=== PATIENT | female | born 1990 ===

== ENCOUNTER 2018-04-10 10:13 | Outpatient (CLI) | payer OTHER ==
[~2018-04-10] VITALS: Ht 152.4 cm; Wt 65.8 kg
== END 2018-04-10 10:30 | disposition home or self-care (01) ==
LOC: OFIC 805 10:13
DX: H66.012 Acute suppurative otitis media with spontaneous rupture of ear drum, left ear (principal); H70.12 Chronic mastoiditis, left ear; H69.82 Other specified disorders of Eustachian tube, left ear; H61.22 Impacted cerumen, left ear

== ENCOUNTER 2018-10-23 14:22 | Inpatient (IN) | payer OTHER ==
[~2018-10-23] VITALS: Ht 167.6 cm; Wt 83.9 kg
== END 2018-11-07 11:42 | disposition home or self-care (01) | DRG 807 ==
LOC: OB/GYN 10-30 13:30 → LDR 11-04 15:03 → SURG-SUITE 11-04 15:03 → OB/GYN 11-19 13:30
PROVIDERS: ADMIT Obstetrics & Gynecology
PROC: 3E033VJ Introduction of Other Hormone into Peripheral Vein, Percutaneous Approach (ICD-10-PCS; 2018-11-04)
PROC: 10907ZC Drainage of Amniotic Fluid, Therapeutic from Products of Conception, Via Natural or Artificial Opening (ICD-10-PCS; 2018-11-04)
PROC: 4A1HXCZ Monitoring of Products of Conception, Cardiac Rate, External Approach (ICD-10-PCS; 2018-11-04)
PROC: 10E0XZZ Delivery of Products of Conception, External Approach (ICD-10-PCS; principal; 2018-11-05)
PROC: 0KQM0ZZ Repair Perineum Muscle, Open Approach (ICD-10-PCS; 2018-11-05)
PROC: 0W8NXZZ Division of Female Perineum, External Approach (ICD-10-PCS; 2018-11-05)
DX: O70.1 Second degree perineal laceration during delivery (principal); Z37.0 Single live birth; Z3A.37 37 weeks gestation of pregnancy; Z22.330 Carrier of Group B streptococcus

== ENCOUNTER 2018-11-03 13:15 | Outpatient (CLI) | payer OTHER | END 2018-11-03 13:37 | disposition home or self-care (01) | LOC: NST 13:15 | DX: Z34.83 Encounter for supervision of other normal pregnancy, third trimester (principal) ==

== ENCOUNTER 2018-11-03 16:16 | Outpatient (CLI) | payer OTHER | END 2018-11-03 17:35 | disposition home or self-care (01) | LOC: NST 16:16 | DX: Z34.83 Encounter for supervision of other normal pregnancy, third trimester (principal) ==

== ENCOUNTER 2019-01-08 11:40 | Outpatient (CLI) | payer OTHER ==
[~2019-01-08] VITALS: Ht 152.4 cm; Wt 71.7 kg
== END 2019-01-08 14:46 | disposition home or self-care (01) ==
LOC: OFIC 805 11:40
DX: H69.83 Other specified disorders of Eustachian tube, bilateral (principal); H70.12 Chronic mastoiditis, left ear; H61.23 Impacted cerumen, bilateral; H66.015 Acute suppurative otitis media with spontaneous rupture of ear drum, recurrent, left ear; H90.0 Conductive hearing loss, bilateral

== ENCOUNTER 2021-02-20 13:03 | Inpatient (IN) | payer OTHER ==
[~2021-02-20] VITALS: Ht 162.6 cm; Wt 75.3 kg
[2021-02-21] MEDS ORDERED: TRI-LO-SPRINTE1 EACH (14:43)
[2021-02-21] MEDS ORDERED: PROGESTERONE200 MG (14:43)
== END 2021-02-23 14:17 | disposition home or self-care (01) | DRG 807 ==
LOC: NST 13:03 → LDR 02-21 06:45 → OB/GYN 02-21 17:44
PROVIDERS: ADMIT Obstetrics & Gynecology Maternal & Fetal Medicine; ATTEND Obstetrics & Gynecology Maternal & Fetal Medicine
PROC: 10E0XZZ Delivery of Products of Conception, External Approach (ICD-10-PCS; principal; 2021-02-21)
PROC: 0HQ9XZZ Repair Perineum Skin, External Approach (ICD-10-PCS; 2021-02-21)
PROC: 10907ZC Drainage of Amniotic Fluid, Therapeutic from Products of Conception, Via Natural or Artificial Opening (ICD-10-PCS; 2021-02-21)
PROC: 3E033VJ Introduction of Other Hormone into Peripheral Vein, Percutaneous Approach (ICD-10-PCS; 2021-02-21)
PROC: 4A1HXFZ Monitoring of Products of Conception, Cardiac Rhythm, External Approach (ICD-10-PCS; 2021-02-21)
DX: O36.5930 Maternal care for other known or suspected poor fetal growth, third trimester, not applicable or unspecified (principal); Z37.0 Single live birth; Z3A.37 37 weeks gestation of pregnancy